=== PATIENT | female | born 1945 | race Caucasian/White ===

== ENCOUNTER → 2025-06-13 10:46 | Outpatient (REF) | payer OTHER, SELFPAY ==
[2025-06-13 11:35] LABS: Hematocrit 44.7 % (37.0-47.0); Hemoglobin 14.9 g/dL (12.0-16.0); Mean Corp Hgb Conc. 33.3 g/dL (33.0-37.0); Mean Corpuscular Volume 111.2 fL (81.0-99.0); Nucleated Red Blood Cells % 0 %; Platelet Count 201 10^3/uL (130-400); Red Cell Dist. Width 12.9 % (11.5-14.5)
[2025-06-13 12:03] LABS: ALT (SGPT) 28 U/L (0-35); AST (SGOT) 30 U/L (14-36); Albumin 4.7 g/dl (3.5-5.0); Alkaline Phosphatase 82 U/L (38-126); Blood Urea Nitrogen 17 mg/dl (7-17); Calcium 9.5 mg/dl (8.4-10.2); Carbon Dioxide 24 mmol/L (22-30); Chloride 109 mmol/L (98-107); Glucose 91 mg/dl (70-99); HDL Cholesterol 98 mg/dl; LDL Cholesterol, Calculated 85 mg/dl; Potassium 4.3 mmol/L (3.5-5.1); Sodium 141 mmol/L (135-145); Total Protein 7.8 g/dl (6.3-8.2); Very Low Density Lipoprotein 23 mg/dl (0-30); eGFR > 60.00
[2025-06-13 12:47] LABS: Vitamin B12 195 pg/ml (239-931)
[2025-06-13 14:07] LABS: Glycohemoglobin (HgbA1c) 5.1 % (4.0-5.9)
[2025-06-15 12:40] LABS: CA 19-9 6 U/mL (<=35)
== END ==
LOC: REG 10:46
PROVIDERS: ATTENDING PHYSICIAN Physician Assistant
DX: N18.31 Chronic kidney disease, stage 3a (principal); G25.0 Essential tremor; R73.9 Hyperglycemia, unspecified; E53.8 Deficiency of other specified B group vitamins; Z80.0 Family history of malignant neoplasm of digestive organs; E78.1 Pure hyperglyceridemia
CPT/HCPCS: 36415; 80053; 80061; 82607; 83036; 85025; 86301